=== PATIENT | male | born 1990 | race African-American/Black ===

== ENCOUNTER 2021-11-06 00:10 | Emergency (ER) | payer SELFPAY ==
[~2021-11-06] VITALS: Ht 188 cm; Wt 135.0 kg
[2021-11-06 01:00] LABS: BASOPHILS % 0.2 % (0.0-2.0); EOSINOPHILS % 1.3 % (0.0-5.0); HEMATOCRIT. 49.5 % (42.0-52.0); HEMOGLOBIN. 16.1 g/dL (14.0-18.0); MEAN CORPUSCULAR HEMOGLOBIN 28.1 pg (28.0-32.0); MEAN CORPUSCULAR VOLUME 86.2 fL (80.0-94.0); MEAN PLATELET VOLUME 8.3 fl (7.4-10.4); MONOCYTES % 7.6 % (2.0-8.0); NEUTROPHILS % 79.9 % (40.0-76.0); PLATELET 205 x1000/uL (130-400); RED BLOOD CELL COUNT 5.74 mill/uL (4.7-6.1); RED CELL DISTRIBUTION WIDTH 14.2 % (11.6-14.6)
[2021-11-06 01:03] LABS: CHLORIDE 108 mEq/L (98-107)
[2021-11-06 01:11] VITALS: BP 117/68
[2021-11-06 01:23] LABS: ETHANOL BLOOD < 10 mg/dL
[2021-11-06 01:28] LABS: *BARBITURATES SCREEN URINE NEGATIVE (NEGATIVE); *BENZODIAZEPINES SCREEN URINE NEGATIVE (NEGATIVE); *COCAINE SCREEN URINE NEGATIVE (NEGATIVE)
[2021-11-06 01:29] LABS: *AMPHETAMINES SCREEN URINE NEGATIVE (NEGATIVE); CANNABINOID URINE SCREEN PRESUMTIVE POSITIVE (NEGATIVE); METHADONE URINE SCREEN NEGATIVE (NEGATIVE); OPIATES URINE SCREEN NEGATIVE (NEGATIVE); PHENCYCLIDINE URINE SCREEN NEGATIVE (NEGATIVE)
[2021-11-06 01:37] LABS: BG BASE EXCESS -1.1 mmol/L (-2.0-2.0); BG CARBOXYHEMOGLOBIN 0.5 % (0.5-1.5); BG DEOXYHEMOGLOBIN 4.3 % (0.0-5.0); BG FRACTION INSPIRED OXYGEN 21; BG HCO3 ACT 23.4 mmol/L (22.0-26.0); BG METHEMOGLOBIN 12.2 % (0.0-1.5); BG OXYGEN SATURATION 95.1 % (92.0-98.5); BG PCO2 38.6 mmHg (35.0-45.0); BG SAMPLE SITE RIGHT RADIAL; BG VENT MODE ROOM AIR
== END 2021-11-06 02:34 | disposition left against medical advice (07) ==
LOC: ER 00:10
DX: T50.905A Adverse effect of unspecified drugs, medicaments and biological substances, initial encounter (principal); Y92.89 Other specified places as the place of occurrence of the external cause; J45.909 Unspecified asthma, uncomplicated
CPT/HCPCS: 36415; 36600; 80053; 80305; 80307; 80320; 80329; 82375; 82805; 85025; 99283; G0480